=== PATIENT | female | born 1995 | race Asian ===

== ENCOUNTER 2018-09-03 21:39 | Emergency (ER) | payer OTHER ==
[2018-09-03] MEDS ORDERED: Lidocaine 1%* 5 ML VIAL INJ ONE (22:10)
[2018-09-03] MEDS ORDERED: Lidocaine 1% INJ* 10 MG/ML 30 ML SDV ONE (22:18)
--- NOTE | 2018-09-03 22:57 | ED ---
Laceration/Wound HPI - HPI Summary HPI Summary: 23-year-old female presents with laceration to left index and middle finger today. She states that she cut it on a knife. States area continues to bleed. Tetanus up-to-date. Has no medical conditions. Is not on blood thinners. Full range of motion of her fingers. Denies any foreign body in the wound. she is a student and she is left handed. - History of Current Complaint Stated Complaint: LT MIDDLE AND POINTER FINGER LAC Time Seen by Provider: 09/03/18 22:02 Pain Intensity: 3 - Allergy/Home Medications Allergies/Adverse Reactions: Allergies Allergy/AdvReac Type Severity Reaction Status Date / Time issa Allergy Rash Verified 09/03/18 21:48 Home Medications: Home Medications Escitalopram Oxalate [Lexapro 10 mg] 5 mg PO DAILY 09/03/18 [History Confirmed 09/03/18] PMH/Surg Hx/FS Hx/Imm Hx Endocrine/Hematology History: Denies: Hx Anticoagulant Therapy Respiratory History: Denies: Hx Asthma Infectious Disease History: No Infectious Disease History: Denies: Traveled Outside the [place] in Last 30 Days - Family History Known Family History: Positive: Non-Contributory - Social History Alcohol Use: Occasionally Substance Use Type: Reports: None Smoking Status (MU): Never Smoked Tobacco Review of Systems Negative: Fever Negative: Chest Pain Negative: Shortness Of Breath Positive: Other - lac left hand All Other Systems Reviewed And Are Negative: Yes Physical Exam Triage Information Reviewed: Yes Vital Signs On Initial Exam: Initial Vitals Temp Pulse Resp BP Pulse Ox 99.6 F 68 16 107/62 100 09/03/18 21:42 09/03/18 21:42 09/03/18 21:42 09/03/18 21:42 09/03/18 21:42 Vital Signs Reviewed: Yes Appearance: Positive: Well-Appearing Skin: Positive: Warm, Dry, Other - 1cm superficial DIP left middle finger, 2cm superficial DIP left index finger actively bleeding Head/Face: Positive: Normal Head/Face Inspection Eyes: Positive: Normal, Conjunctiva Clear ENT: Positive: Pharynx normal Respiratory/Lung Sounds: Positive: Clear to Auscultation, Breath Sounds Present Cardiovascular: Positive: Normal, RRR Musculoskeletal: Positive: Strength/ROM Intact - left hand, Other - capillary refill<2 secs Neurological: Positive: Normal Psychiatric: Positive: Normal Procedures - Laceration/Wound Repair left index Location: Other - left index Description: Linear Anesthesia: Digital, 1.0% Length, Depth and Shape: 2cm superficial Irrigated w/ Saline (ccs): 100 Suture Type: Prolene Number of Sutures: 3 Sterile Dressing Applied?: Yes - xeroform, telfa, guaze, coband and gilda taped 2 Location: Other - left middle finger Description: Linear Anesthesia: Digital, 1.0% Length, Depth and Shape: 1cm superficial Irrigated w/ Saline (ccs): 100 Suture Type: Prolene Number of Sutures: 1 Sterile Dressing Applied?: Yes - telfa, guaze, coband and gilda taped Diagnostics - Vital Signs Vital Signs Temp Pulse Resp BP Pulse Ox 09/03/18 21:42 99.6 F 68 16 107/62 100 - Laboratory Lab Statement: Any lab studies that have been ordered have been reviewed, and results considered in the medical decision making process. Laceration Repair Course/Dx - Course Course Of Treatment: 23-year-old female presents with laceration to left index and middle finger today. She states that she cut it on a knife. States area continues to bleed. Tetanus up-to-date. Has no medical conditions. Is not on blood thinners. Full range of motion of her fingers. Denies any foreign body in the wound. On exam has superficial laceration of the DIP of the ring finger that is 1cm long. Cleaned area and place 1 suture. Has 2 cm laceration of DIP of left index finger. Cleaned and place 3 sutures in. Area continues to bleed so placed in a pressure dressing and gilda taped together. Told to keep pressure dressing on area and change in 24 hours. Patient understands agrees with plan. - Differential Dx Differental Diagnoses: Abrasion, Avulsion, Laceration - Clinical Impression Provider Diagnoses: Laceration of left index finger, Laceration of left middle finger Discharge - Sign-Out/Discharge Documenting (check all that apply): Patient Departure - Discharge Plan Condition: Good Disposition: HOME Patient Education Materials: Care For Your Stitches (ED) Referrals: No Primary Care Phys,NOPCP [Primary Care Provider] - Additional Instructions: Keep area gilda taped, change dressing once a day Keep area clean and dry for 24 hours Take Tylenol or ibuprofen for pain every 6 hours Return to ED or [facility] for suture removal in 7-10 days Return to ED if develop signs of infection such as fever, spreading redness, or pus formation - Billing Disposition and Condition Condition: GOOD Disposition: Home
[2018-09-03 23:05] VITALS: BP 107/73
== END 2018-09-03 23:08 | disposition home or self-care (01) ==
LOC: ED 21:39
DX: S61.211A Laceration without foreign body of left index finger without damage to nail, initial encounter (principal); S61.213A Laceration without foreign body of left middle finger without damage to nail, initial encounter; W26.0XXA Contact with knife, initial encounter; Y92.9 Unspecified place or not applicable
CPT/HCPCS: 12002; 99282